=== PATIENT | male | born 1970 | race Two or more races ===

== ENCOUNTER 2018-03-14 07:49 | Day surgery (SDC) | payer OTHER ==
[~2018-03-14 07:49] MED LIST: ACIDOPHILUS1 EAC1 PO; IMODIUM A-D2 M2 PO; INTESTINEX680 MG PO; OXYC1TAB9 PO; TRAM1TAB98 PO
== END 2018-03-14 14:10 | disposition home or self-care (01) ==
LOC: AMB-ENDOS 07:49
DX: Z85.048 Personal history of other malignant neoplasm of rectum, rectosigmoid junction, and anus (principal)

== ENCOUNTER 2018-06-01 05:53 | Day surgery (SDC) | payer OTHER ==
[2018-06-01] MEDS ORDERED: TRAM1TAB98 PO ×2 (09:32)
== END 2018-06-01 11:10 | disposition home or self-care (01) ==
LOC: CIR.AMB 05:53
DX: C20 Malignant neoplasm of rectum (principal)

== ENCOUNTER → 2019-04-17 | Day surgery (SDC) | payer OTHER | END | disposition home or self-care (01) | LOC: ADM 04-13 10:00 → AMB-ENDOS 10:00 | DX: C20 Malignant neoplasm of rectum (principal) ==

== ENCOUNTER 2020-05-27 09:46 | Day surgery (SDC) | payer OTHER | END 2020-05-27 14:51 | disposition home or self-care (01) | LOC: AMB-ENDOS 09:46 → ADM 12:15 → CIR.AMB 12:15 → AMB-ENDOS 14:51 | PROVIDERS: ATTEND Surgery | DX: D12.8 Benign neoplasm of rectum (principal) ==

== ENCOUNTER 2021-02-03 08:46 | Day surgery (SDC) | payer OTHER | END 2021-02-03 12:15 | disposition home or self-care (01) | LOC: AMB-ENDOS 08:46 | PROVIDERS: ATTEND Surgery | DX: C20 Malignant neoplasm of rectum (principal); Z20.822 Contact with and (suspected) exposure to COVID-19 ==

== ENCOUNTER 2021-03-30 06:02 | Day surgery (SDC) | payer OTHER ==
[2021-03-30] MEDS ORDERED: ULTRACET PO (10:31)
== END 2021-03-30 12:10 | disposition home or self-care (01) ==
LOC: CIR.AMB 06:02
PROVIDERS: ATTEND Surgery
DX: C20 Malignant neoplasm of rectum (principal); Z20.822 Contact with and (suspected) exposure to COVID-19
CPT/HCPCS: 36561; C1751